=== PATIENT | female | born 1975 | race Caucasian/White ===

== ENCOUNTER 2020-08-21 13:08 | Outpatient (CLI) | payer BC, SELFPAY ==
--- NOTE | 2020-08-21 13:21 | XR_ITS ---
WS: [id number] CERVICAL SPINE TECHNIQUE: 3 views of the cervical spine CLINICAL INFORMATION: CERVICAL SPONDYLOSIS, SPINAL FUSION, C6-C7 ACDF COMPARISON: None. FINDINGS: Straightening of the normal cervical lordosis. Anterior interbody cervical fusion C6-C7. Immature int erbody fusion graft. Normal C1-C2 articulation. Mild spondylitic changes. Unremarkable for postoperat nelli purposes. XR/XR cervical spine 3V* [id number] IMPRESSION: 1. Anterior cervical fusion with immature interbody fusion graft C6-7 appears in appropriate position. 2. Straightening of the normal cervical lordosis. 3. Cervical spine otherwise unremarkable.
== END 2020-08-21 13:09 | disposition home or self-care (01) ==
PROVIDERS: PCP Physician Assistant Surgical; Visit Provider Physician Assistant Surgical
DX: M47.812 Spondylosis without myelopathy or radiculopathy, cervical region (principal); Z98.1 Arthrodesis status; M43.22 Fusion of spine, cervical region
CPT/HCPCS: 72040

== ENCOUNTER 2020-10-05 13:48 | Outpatient (CLI) | payer BC, SELFPAY ==
--- NOTE | 2020-10-05 14:02 | XR_ITS ---
WS: [id number] Lateral views of cervical spine in the flexion, extension and neutral positions. 10/05/2020 Clinical Data: S/P CERVICAL FUSION Comparison: Cervical spine, 08/21/2020. Findings: The interbody graft at C6-7 remains the same. No prevertebral soft tissue swelling is seen. There is no fracture or dislocation of the cervical vertebra. On flexion and extension there is no limitation of motion or subluxation. The interbody fusion remains stable. XR/XR cervical spine fl/ex [id number] Impression: 1. Negative for limitation of motion or subluxation on flexion or extension. 2. Stable interbody fusion at C6-C7.
== END 2020-10-05 13:49 | disposition home or self-care (01) ==
PROVIDERS: PCP Physician Assistant Surgical; Visit Provider Surgery
DX: Z98.1 Arthrodesis status (principal)
CPT/HCPCS: 72040

== ENCOUNTER 2021-03-28 15:24 | Outpatient (RCR) | payer BC, SELFPAY | END 2021-04-22 23:59 | disposition home or self-care (01) | LOC: SPT 15:24 | PROVIDERS: PCP Physician Assistant Surgical; Referring Provider Surgery; Visit Provider Surgery | DX: Z98.1 Arthrodesis status (principal); M47.812 Spondylosis without myelopathy or radiculopathy, cervical region | CPT/HCPCS: 97110; 97161 ==

== ENCOUNTER 2021-07-30 06:00 | Outpatient (RCR) | payer BC, SELFPAY | END 2021-08-22 23:59 | disposition home or self-care (01) | LOC: SPT 06:00 | PROVIDERS: PCP Physician Assistant Surgical; Referring Provider Physician Assistant; Visit Provider Physician Assistant | DX: M48.9 Spondylopathy, unspecified (principal) | CPT/HCPCS: 97110; 97140; 97161 ==

== ENCOUNTER → 2021-08-08 09:50 | Outpatient (BNVA) | payer BC, SELFPAY | PROVIDERS: PCP Physician Assistant Surgical; Visit Provider Orthopaedic Surgery | DX: M54.2 Cervicalgia (principal) | CPT/HCPCS: 72050 ==

== ENCOUNTER 2021-08-19 07:41 | Outpatient (CLI) | payer BC, SELFPAY ==
--- NOTE | 2021-08-19 08:00 | MR_ITS ---
WS: [id number] MRI CERVICAL SPINE NONCONTRAST HISTORY: Z98.1 - Arthrodesis status COMPARISON: Cervical spine radiographs 08/08/2021 Technique: Multiplanar, multisequence noncontrast imaging of the cervical spine. Straightening of the normal cervical lordosis. Interbody fusion graft at C6-7 is reidentified. Mild n arrowing of the disc space with no edema along the disc space. Signal within the cervical cord is normal. Visualized posterior fossa is unremarkable. Craniocervical junction, C1 and C2 relationship, odontoid process and soft tissues are normal. C2-C3: Very tiny central disc protrusion with no stenosis. C3-C4: Tiny central disc protrusion and bilateral foraminal osteophytes. No stenosis. C4-C5: Small central disc protrusion. Deformity of the ventral thecal sac and there are small foramin al osteophytes. Very minimal encroachment upon the thecal sac but no high-grade stenosis. Mild facet arthritis. C5-C6: Diffuse annular disc bulging with a central shallow disc protrusion and foraminal osteophytes. Very minimal narrowing of the central canal and mild facet arthritis. C6-C7: Diffuse moderate osteophytic ridging causing very mild contact on the ventral thecal sac. Ther e is mild central and bilateral foraminal stenosis and mild facet arthritis. C7-T1: Normal. Paraspinal soft tissue are normal. MR/MR cervical spin wo con* [id number] IMPRESSION: 1. Interbody fusion graft at C6-7 in good alignment. No edema along the disc s pace or within the vertebral bodies. 2. Mild central and bilateral foraminal stenosis at the C6-7 level predominant ly due to osteophyte disease. 3. Small central disc protrusions from C2-3 through C5-6 without significant s tenosis or cord contact.
== END 2021-08-19 07:42 | disposition home or self-care (01) ==
LOC: RADSHAW 07:46
PROVIDERS: PCP Physician Assistant; Visit Provider Orthopaedic Surgery
DX: M72.2 Plantar fascial fibromatosis (principal); Z98.1 Arthrodesis status; M43.22 Fusion of spine, cervical region
CPT/HCPCS: 72141; 73630

== ENCOUNTER 2021-08-23 06:00 | Outpatient (RCR) | payer BC, SELFPAY | END 2021-09-22 23:59 | disposition home or self-care (01) | LOC: SPT 06:00 | PROVIDERS: PCP Physician Assistant; Referring Provider Physician Assistant; Visit Provider Physician Assistant | DX: Z47.89 Encounter for other orthopedic aftercare (principal); Z98.1 Arthrodesis status; M72.2 Plantar fascial fibromatosis | CPT/HCPCS: 97110; 97140 ==

== ENCOUNTER 2021-09-23 06:00 | Outpatient (RCR) | payer BC, SELFPAY | END 2021-10-22 23:59 | disposition home or self-care (01) | LOC: SPT 06:00 | PROVIDERS: PCP Physician Assistant; Referring Provider Physician Assistant; Visit Provider Physician Assistant | DX: M43.22 Fusion of spine, cervical region (principal); M72.2 Plantar fascial fibromatosis | CPT/HCPCS: 97110; 97140 ==

== ENCOUNTER → 2023-08-11 14:12 | Outpatient (BNVA) | payer SELFPAY | PROVIDERS: Visit Provider Family Medicine | DX: R79.89 Other specified abnormal findings of blood chemistry (principal); R41.3 Other amnesia | CPT/HCPCS: 80053; 80061; 82306; 82607; 84443; 85025 ==

== ENCOUNTER → 2023-08-19 11:30 | Outpatient (BNVA) | payer SELFPAY | PROVIDERS: PCP Family Medicine; Visit Provider Family Medicine | DX: L81.9 Disorder of pigmentation, unspecified (principal) | CPT/HCPCS: 88304 ==

== ENCOUNTER → 2023-12-11 10:35 | Outpatient (BNVA) | payer SELFPAY | PROVIDERS: PCP Family Medicine; Visit Provider Family Medicine | DX: R79.89 Other specified abnormal findings of blood chemistry (principal) | CPT/HCPCS: 82607 ==